=== PATIENT | male | born 2000 | race Two or more races ===

== ENCOUNTER 2022-12-23 09:15 | Emergency (ER) | payer BC, SELFPAY ==
[2022-12-23 09:17] VITALS: BP 146/87; PULSE 104; RESP 18; TEMP 36.8; O2SAT 99; BMI 29.5
--- NOTE | 2022-12-23 09:29 | ED.DENTAL1 ---
HPI - Dental/Oral General Chief complaint: Dental/Oral Stated complaint: Dental Time Seen by Provider: 12/23/22 09:17 Source: patient Mode of arrival: walk-in Limitations: no limitations History of Present Illness HPI Narrative: 22-year-old male presents for dental pain. Five days ago the patient had four wisdom teeth taken out. He has Tylenol with Codeine at home but hasn't taken any today or yesterday. No fever or difficulty breathing or swallowing. His pain is moderate to severe and continuous. Related Data Home Medications Medication Instructions Recorded Confirmed acetaminophen 300 mg-codeine 30 mg 1 tab PO Q6H PRN pain 12/23/22 12/23/22 tablet Previous Rx's Medication Instructions Recorded penicillin V potassium 250 mg 250 mg PO QID 10 days #40 tabs 12/23/22 tablet Allergies Allergy/AdvReac Type Severity Reaction Status Date / Time No Known Drug Allergies Allergy Verified 12/23/22 09:19 Review of Systems ROS Narrative A ten point review of systems is negative except as noted above. PFSH PFSH Social History Smoking status: Former smoker Exam Narrative Exam Narrative: Nurses note and vital signs reviewed and patient is not hypoxic. General: The patient appears well and in no apparent distress. Patient is resting comfortably on cart. Skin: Warm, dry, no pallor noted. There is no rash noted. Head: Normocephalic, atraumatic Eye: Normal conjunctiva, no drainage Ears, Nose, Mouth, and Throat: oral mucosa is moist. Nares patent. he is handling his oral secretions well. Opening his mouth causes discomfort but there is no swelling or erythema on the face. No swelling to the floor of his mouth. No bleeding or pus present. Cardiovascular: Regular Rate and Rhythm Respiratory: Patient is in no distress, no accessory muscle use, lungs are clear to auscultation, no wheezing, rales or rhonchi Back: non-tender GI: soft and nontender Musculoskeletal: The patient has no evidence of calf tenderness, no pitting edema, symmetrical pulses noted bilaterally Neurological: A&O, normal speech Psychiatric: Cooperative Constitutional Vital Signs, click to edit/add: Last Vital Signs Temp 98.3 F 12/23/22 09:17 Pulse 104 H 12/23/22 09:17 Resp 18 12/23/22 09:17 BP 146/87 H 12/23/22 09:17 Pulse Ox 99 11/18/23 09:17 Course Vital Signs Vital signs: Vital Signs Temperature 98.3 F 12/23/22 09:17 Pulse Rate 104 H 12/23/22 09:17 Respiratory Rate 18 12/23/22 09:17 Blood Pressure 146/87 H 12/23/22 09:17 Pulse Oximetry 99 12/23/22 09:17 Temperature 98.3 F 12/23/22 09:17 Pulse Rate 104 H 12/23/22 09:17 Respiratory Rate 18 12/23/22 09:17 Blood Pressure 146/87 H 12/23/22 09:17 Pulse Oximetry 99 12/23/22 09:17 Discharge Plan Discharge Chief Complaint: Dental/Oral Clinical Impression: Pain, dental Time of Disposition Decision: :27 Condition: Good Mode of Transportation: Private Vehicle Prescriptions / Home Meds: New penicillin V potassium 250 mg tablet 250 mg PO QID 10 Days Qty: 40 0RF No Action acetaminophen-codeine 300-30 mg tablet 1 tab PO Q6H PRN (Reason: pain) Instructions: Toothache (ED) Stand Alone Forms: Portal Instructions
[2022-12-23] MEDS: KETOROLAC TROMETHAMINE 60 MG/2 ML VIAL IM (09:35)
== END 2022-12-23 09:36 | disposition home or self-care (01) ==
PROVIDERS: Emergency Provider Emergency Medicine
DX: K08.89 Other specified disorders of teeth and supporting structures (principal); Z87.891 Personal history of nicotine dependence
CPT/HCPCS: 96372; 99284